=== PATIENT | male | born 1950 | race Caucasian/White ===

== ENCOUNTER 2016-12-01 05:48 | Day surgery (SDC) | payer BC ==
[~2016-12-01] VITALS: Ht 175.3 cm; Wt 91.1 kg
[~2016-12-01 05:48] MED LIST: MAGNESIUM250 MG PO; NEXIUM40 MG PO; PROSTATE HEALT1 EAC1 PO; TEGRETOL PO; TEGRETOL200 MG PO; TYLENOL WITH C1 EACH PO
[2016-12-01 06:14] VITALS: BP 127/82
[2016-12-01] MEDS ORDERED: PERCOCET 5/31 TABLET PO (08:25)
[2016-12-01 09:50] VITALS: BP 91/60
[2016-12-01 11:00] VITALS: BP 122/79
== END 2016-12-01 11:00 | disposition home or self-care (01) ==
LOC: SDC 05:48
DX: K64.8 Other hemorrhoids (principal); K64.4 Residual hemorrhoidal skin tags; K62.0 Anal polyp; K21.9 Gastro-esophageal reflux disease without esophagitis; G40.909 Epilepsy, unspecified, not intractable, without status epilepticus
CPT/HCPCS: 80156; 88304; J1885